=== PATIENT | male | born 1995 | race Two or more races ===

== ENCOUNTER 2019-11-08 14:30 | Emergency (ER) | payer OTHER ==
[~2019-11-08] VITALS: Ht 175.3 cm; Wt 86.2 kg
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
[2019-11-08] MEDS ORDERED: PIPERACILLIN /TAZOBACTAM 3.375 G in IV D5W 50 ML IV ONE (15:00)
--- NOTE | 2019-11-08 15:12 | NUR ---
[employer] at bedside
[2019-11-08 16:42] VITALS: BP 115/69
--- NOTE | 2019-11-08 16:43 | NUR ---
Patient discharged to home in stable condition. Written and verbal after care instructions given. Patient verbalizes understanding of instruction.IV removed. Catheter intact and site benign. Pressure and 4x4 applied to site. No bleeding noted.
== END 2019-11-08 16:43 | disposition home or self-care (01) ==
LOC: ER 14:35
DX: S91.002A Unspecified open wound, left ankle, initial encounter (principal); W34.09XA Accidental discharge from other specified firearms, initial encounter; Y93.89 Activity, other specified; Y92.89 Other specified places as the place of occurrence of the external cause; Y99.8 Other external cause status
CPT/HCPCS: 29515; 73610; 96365; 99283; J2543; J7060